=== PATIENT | male | born 1965 | race Caucasian/White ===

== ENCOUNTER → 2017-03-10 | Outpatient (CLI) | payer BC ==
[~2017-03-10] VITALS: Ht 190.5 cm; Wt 109.8 kg
[~2017-03-10] MED LIST: CATHETER FLUSH 10 ML SYR IVP PRN; GADOBUTROL 7.5 MMOL/7.5 ML (GADAVIST) VIAL IV ONE; HYDR-3583 PO; IOHEXOL 300 MG/ML 30 ML (OMNIPAQUE 300) VIAL IV ONE
[2017-03-10 12:06] VITALS: BP 128/74
[2017-03-10 12:41] VITALS: BP 124/68
--- NOTE | 2017-03-10 13:40 | Diagnostic Imaging Report ---
EXAMINATION: Fluoroscopic guided joint injection/arthrogram- left. INDICATION: Left shoulder pain, request for MR arthrogram of the shoulder is submitted. Fluoroscopy time: 25 seconds CONSENT: Informed consent was obtained from the patient. The risks, benefits, potential complications and alternatives were reviewed and all questions answered to the patient's satisfaction. PROCEDURE: After sterile preparation and draping, 1% lidocaine was utilized for local anesthesia. A 22 spinal needle is introduced into the glenohumeral joint under fluoroscopic guidance. After confirmation of proper positioning with intra-articular injection of, 12 ml of 1:150 concentration of Gadavist in normal saline is injected the into the joint. The patient tolerated the procedure well with no immediate complications. FINDINGS: Arthrogram demonstrates Normal distribution of contrast in the joint with no filling of the subacromial subdeltoid bursa seen. IMPRESSION: Successful fluoroscopic guided injection of diluted gadolinium into the left shoulder. MR arthrogram to follow. Dictated by: Dictated on workstation # [id number]
--- NOTE | 2017-03-10 14:22 | Diagnostic Imaging Report ---
PROCEDURE: MRI left joint upper extremity with contrast. TECHNIQUE: Multiplanar, multisequence contrast-enhanced MRI of the left upper extremity was accomplished. INDICATION: Left shoulder pain. Labral tear is suspected. FINDINGS: There is no os acromiale or Hill-Sachs deformity. The long head of biceps tendon is within its groove. There is good contrast distention of the glenohumeral joint with contrast extending deep to the superior labrum segment in a vertical fashion compatible with a SLAP tear. The tear does not appear to extend to the long head biceps tendon. There is also suspected focal tear involving the posterior segment of the labrum best seen around axial image #15. The acromioclavicular joint demonstrates mild osteoarthritis changes with inferior osteophytes that have an impression upon the myotendinous junction of the supraspinatus and tendinosis in the distal supraspinatus tendon with no significant rotator cuff tear seen, however. There is mild marrow edema around the acromioclavicular joint. IMPRESSION: 1. Findings suggestive of a SLAP tear and question of a focal tear along the posterior segment of the labrum. 2. Acromioclavicular osteoarthritis with inferior osteophytes and tendinosis of the distal supraspinatus tendon. No significant rotator cuff tear. Dictated by: Dictated on workstation # [id number]
== END ==
LOC: RAD 11:37
PROVIDERS: ATTEND Orthopaedic Surgery
DX: M19.012 Primary osteoarthritis, left shoulder (principal); M25.712 Osteophyte, left shoulder
CPT/HCPCS: 23350; 73040; 73222

== ENCOUNTER 2018-12-15 05:35 | Outpatient (CLI) | payer BC ==
[~2018-12-15] VITALS: Ht 190.5 cm; Wt 106.0 kg
[~2018-12-15 05:35] MED LIST changes: -CATHETER FLUSH 10 ML SYR IVP PRN; -GADOBUTROL 7.5 MMOL/7.5 ML (GADAVIST) VIAL IV ONE; -IOHEXOL 300 MG/ML 30 ML (OMNIPAQUE 300) VIAL IV ONE
[2018-12-15] MEDS ORDERED: AMPH20TA2 PO (10:25)
== END 2018-12-15 11:52 | disposition home or self-care (01) ==
LOC: PREOP 05:35
PROVIDERS: ATTEND Surgery
DX: Z01.818 Encounter for other preprocedural examination (principal)

== ENCOUNTER 2018-12-22 08:20 | Day surgery (SDC) | payer BC ==
[2018-12-22] VITALS (14 sets, daily range): BP systolic 113–129; BP diastolic 55–84
[~2018-12-22] VITALS: Ht 190.5 cm; Wt 106.0 kg
[~2018-12-22 08:20] MED LIST changes: +AMPH20TA2 PO
[2018-12-22] MEDS ORDERED: NS IV 500 ML 500 ML ONE (08:32)
[2018-12-22] MEDS ORDERED: NS IV 500 ML 500 ML IV PRN (08:38)
[2018-12-22] MEDS ORDERED: HURRICAINE EXT TUBE (BENZOCAINE) XX PRN (08:45)
[2018-12-22] MEDS ORDERED: fentaNYL INJECTION 100 MCG/2 ML AMP IVP ONE (08:45)
[2018-12-22] MEDS ORDERED: LIDOCAINE JELLY 2% 6 ML SYRINGE MM PRN (08:45)
[2018-12-22] MEDS ORDERED: MIDAZOLAM 2 MG/2 ML (VERSED) VIAL IVP ONE (08:45)
[2018-12-22] MEDS ORDERED: fentaNYL INJECTION 100 MCG/2 ML AMP ONE ×2 (10:22→10:23)
[2018-12-22] MEDS ORDERED: MIDAZOLAM 2 MG/2 ML (VERSED) VIAL ONE ×4 (10:23)
[2018-12-22] MEDS ORDERED: LIDOCAINE JELLY 2% 6 ML SYRINGE ONE (10:23)
--- NOTE | 2018-12-22 11:17 | Conscious Sedation/ASA ---
Conscious Sedation Pre-Proced Time 09:30 ASA Score 2 For ASA 3 and 4: Consider anesthesia and medical clearance. Also, for patients with a history of failed moderate sedation consider anesthesia. Airway Lungs Heart ASA score ASA 1: a normal healthy patient ASA 2: a patient with a mild systemic disease (mid diabetes, controlled hypertension, obesity ASA 3: a patient with a severe systemic disease that limits activity (angina, COPD, prior Myocardial infarction) ASA 4: a patient with an incapacitating disease that is a constant threat to life (CHF, renal failure) ASA 5: a moribund patient not expected to survive 24 hrs. (ruptured aneurysm) ASA 6: a declared brain- patient whose organs are being harvested. For emergent operations, add the letter E after the classification Mallampati Classification Grade 2 Sedation Plan Analgesia, Amnesia, Plan communicated to team members, Discussed options with patient/fam, Discussed risks with patient/fam The patient is an appropriate candidate to undergo the planned procedure, sedation, and anesthesia. The patient immediately re-assessed prior to indication. DESMOND FERREIRA MD Dec 22, 2018 11:17
--- NOTE | 2018-12-22 11:18 | Progress Note-Pre Operative ---
Pre-Operative Progress Note H&P Reviewed The H&P was reviewed, patient examined and no changes noted. Date Seen by Provider: Dec 22, 2018 Time Seen by Provider: : Date H&P Reviewed: Dec 22, 2018 Time H&P Reviewed: :30 Pre-Operative Diagnosis: GERD, dysphagia, screening, family hx colon ca DESMOND FERREIRA MD Dec 22, 2018 11:18
--- NOTE | 2018-12-22 11:20 | Progress Note-Post Operative ---
Post-Operative Progess Note Surgeon (s)/Manager Php (s) Surgeon DESMOND FERREIRA MD Manager Php: none Pre-Operative Diagnosis GERD, dysphagia, screening, family hx colon ca Post-Operative Diagnosis reflux esophagitis(stage 2), mild dist esoph stricture, small type 1 HH(2cm), moderate gastriris. Procedure & Operative Findings Date of Procedure 12/22/18 Procedure Performed/Findings EGD with bx and balloon dilatation. Colonoscopy. Anesthesia Type cs Estimated Blood Loss Estimated blood loss (mL): minimal Specimens/Packing Specimens Removed ge jxn, antrum DESMOND FERREIRA MD Dec 22, 2018 11:20
[2018-12-22] MEDS ORDERED: morphine INJ 10 MG/ML 1ML (SYR OR VIAL) IVP PRN ×2 (11:30)
[2018-12-22] MEDS ORDERED: ONDANSETRON 4 MG/2 ML (SDV) Z0FRAN IVP PRN (11:30)
[2018-12-22] MEDS ORDERED: ACETAMINOPHEN 325 MG TABLET PO PRN (11:30)
[2018-12-22] MEDS ORDERED: HYDROcodone/APAP 5 MG/325 MG (LORTAB) TAB PO PRN (11:30)
--- NOTE | 2018-12-22 15:27 | OPERATIVE REPORT ---
DATE OF SERVICE: 12/22/2018 ATTENDING PRIMARY CARE PHYSICIAN: John Wan DO PREOPERATIVE DIAGNOSIS: Screening colonoscopy with family history of colon cancer. Gastroesophageal reflux disease, dysphagia. POSTOPERATIVE DIAGNOSES: Reflux esophagitis stage II, mild distal esophageal stricture and Schatzki's ring, small hiatal hernia approximately 2 cm in size. Moderate gastritis. No distal obstructions. Mild chronic stage II external and internal hemorrhoids, mild sigmoid diverticulosis. PROCEDURE: EGD with biopsy and balloon dilatation, colonoscopy. SURGEON: Desmond Bauman MD ANESTHESIA: Conscious sedation. ESTIMATED BLOOD LOSS: Minimal. FINDINGS: Reflux esophagitis stage II, mild distal esophageal stricture and Schatzki's ring, small hiatal hernia approximately 2 cm in size. Moderate gastritis. No distal obstructions. Mild chronic stage II external and internal hemorrhoids, mild sigmoid diverticulosis. DISPOSITION: The patient tolerated the procedure well. INDICATIONS: The patient is a 53-year-old male in need of a screening colonoscopy. His last colonoscopy was approximately 6 years ago. He reports for the most part his colonoscopies have been normal. He does have a family history of colon cancer with his mother being diagnosed with the disease at age 69. He also does have a history of gastroesophageal reflux disease, which is worsening for the past two years and does have dysphagia, especially for lean meats. He also does have some episodes of regurgitation. DESCRIPTION OF PROCEDURE: The patient was brought to the endoscopy suite, laid in left lateral decubitus position. After adequate IV pain and sedative medications and conscious sedation anesthesia, the mouthpiece was applied. The endoscope was placed in the mouth, visualizing the pharynx and hypopharyngeal region. Vocal cords, epiglottis and vallecula identified and appeared to be normal. The endoscope was gently abated, the esophageal opening and esophagus insufflated. The endoscope was then advanced to the first, second and third portion of the esophagus at the level of the GE junction, reflux esophagitis stage II identified as well as a mild distal esophageal stricture and Schatzki's ring. The GE junction was also intrathoracic consistent with a hiatal hernia. A biopsy was taken of the GE junction with forceps with visualization of good hemostasis. The endoscope was then advanced into the stomach and endoscope retroflexed, visualizing a small hiatal hernia approximately 2 cm in size. The Schatzki's ring was also identified. There was a moderate severity gastritis noted towards the stomach antrum. No formal ulcerations, polyps, or any neoplasms. A biopsy was taken of the antrum to rule out H. pylori with visualization of good hemostasis. The endoscope was then advanced to the pylorus and the first and second portions of the duodenum, which appeared normal and no distal obstructions. We then proceeded with dilatation of the distal esophageal stricture. The balloon was placed in the stomach and pulled back to the area of the stricture. We first proceeded to 2 atmospheres of pressure 18 mm in luminal diameter with mild to moderate resistance and left this in place for approximately 60 seconds. The balloon was desufflated and removed with visualization of good hemostasis as well as no mucosal tears. The endoscope was then slowly withdrawn while taking a second look and suctioning of residual air with no additional findings. Under the same anesthesia, we then proceeded with colonoscopy portion of the procedure. A digital rectal examination was performed, which revealed mild chronic stage II external and internal hemorrhoids, not actively edematous nor inflamed as well as no bleeding. Normal sphincter tone was felt and there were no palpable masses. Prostate gland was palpable and appeared normal. The endoscope was then intubated into the anus and the rectum gently insufflated. The endoscope was then advanced to the valves of Dasilva of the rectum with no polyps or any neoplasms identified. We then proceeded to the sigmoid colon where mild sigmoid diverticulosis identified. The endoscope was then advanced to the remainder of the descending, transverse and ascending colon to the cecum, which were normal. There were no polyps or any neoplasms identified. The endoscope was then slowly withdrawn while taking a second look and suctioning of residual air with no additional findings. The patient tolerated the procedure well. We will recommend continued medical management with the necessary lifestyle and diet accommodation including small and more frequent meals, avoidance of eating at night as well as head elevation while lying supine. He also needs to avoid nicotine products as well as caffeinated beverages, spicy, greasy and acidic foods. We will also start him on Protonix 40 mg daily. If he does become symptomatic with dysphagia, we will recommend a repeat dilatation. We will also recommend a high fiber diet with at least 30 grams of fiber daily as well as significant amounts of water to promote soft stools on a daily basis. Due to his first degree family history of colon cancer, we will recommend a followup colonoscopy in 5 years. Job ID: [id number] DocumentID: [id number] Dictated Date: 12/22/2018 11:08:25 Crossing Guard Date: 12/22/2018 15:27:14 Dictated By: DESMOND BAUMAN MD
== END 2018-12-22 11:53 | disposition home or self-care (01) ==
LOC: ENDO 08:20
PROVIDERS: ATTEND Surgery
DX: Z12.11 Encounter for screening for malignant neoplasm of colon (principal); K21.0 Gastro-esophageal reflux disease with esophagitis; K29.70 Gastritis, unspecified, without bleeding; K22.2 Esophageal obstruction; K44.9 Diaphragmatic hernia without obstruction or gangrene; K64.8 Other hemorrhoids; K64.1 Second degree hemorrhoids; K57.30 Diverticulosis of large intestine without perforation or abscess without bleeding; R13.10 Dysphagia, unspecified; F17.290 Nicotine dependence, other tobacco product, uncomplicated; Z79.899 Other long term (current) drug therapy; Z80.0 Family history of malignant neoplasm of digestive organs

== ENCOUNTER 2019-08-23 12:58 | Inpatient (IN) | payer BC ==
[~2019-08-23] VITALS: Ht 190.5 cm; Wt 106.8 kg
[2019-08-23] MEDS ORDERED: MELATONIN 3 MG TABLET PO PRN (13:15)
[2019-08-23] MEDS ORDERED: HYDROmorphone 2 MG/ML VIAL (DILAUDID) IVP PRN (13:15)
[2019-08-23] MEDS ORDERED: BISACODYL 10 MG SUPP (DULCOLAX) PR PRN (13:15)
[2019-08-23] MEDS ORDERED: diphenhydrAMINE 25 MG TAB (BENADRYL) PO PRN (13:15)
[2019-08-23] MEDS ORDERED: ONDANSETRON 4 MG/2 ML (SDV) Z0FRAN IVP PRN (13:15)
[2019-08-23] MEDS ORDERED: DOCUSATE SODIUM 100 MG (COLACE) CAP PO PRN (13:15)
[2019-08-23] MEDS ORDERED: polyethylene glycoL POWDER 17 GM (MIRALAX) PACK PO NR (13:15)
[2019-08-23] MEDS ORDERED: LOPERAMIDE 2 MG (IMODIUM) TABLET PO PRN (13:15)
[2019-08-23] MEDS ORDERED: methylPREDNISolone 125 MG (Solu-MEDROL) VIAL IVP NR (13:15)
[2019-08-23] MEDS ORDERED: DIAZEPAM 2 MG (VALIUM) TAB PO PRN (13:15)
[2019-08-23] MEDS ORDERED: ONDANSETRON 4 MG (ZOFRAN) ORAL DISSOLVE TAB PO PRN (13:15)
[2019-08-23] MEDS ORDERED: ACETAMINOPHEN 500 MG TAB (TYLENOL) PO PRN (13:15)
[2019-08-23] MEDS ORDERED: CALCIUM CARBONATE 500 MG (TUMS) TAB.CHEW PO PRN (13:15)
[2019-08-23 13:56] VITALS: BP 144/92
--- OUTSIDE RECORDS SUMMARY | 2019-08-23 14:36 | XMS REPORT | Continuity of Care Document ---
Author Organization Unknown Address Unknown Phone Unavailable Allergies Active Description Code Type Severity Reaction Onset Reported/Identified Relationship to Patient Clinical Status Yes No Known Drug Allergies [id number] Drug Allergy Unknown N/A 12/15/2018 Medications There is no data. Problems Date Dx Coded Attending Type Code Diagnosis Diagnosed By 06/30/2012 Ot 717.3 DERA NG MED MENISCUS NEC 11/06/2015 Ot 780.79 OTH MALAISE FATIGUE 11/06/2015 Ot 786.05 LUCY RTNESS OF BREATH 11/06/2015 Ot 789.01 ABD OMINAL PAIN, RIGHT UPPER QUADRANT 11/06/2015 Ot 717.3 DERA NG MED MENISCUS NEC 11/06/2015 Ot V72.83 EXA M PRE- OPERATIVE NEC 11/06/2015 Ot V74.8 SCRE EN-BACTERIAL DIS NEC 2017 Ot 789.01 ABD OMINAL PAIN, RIGHT UPPER QUADRANT 2017 Ot 717.3 DERA NG MED MENISCUS NEC 2017 Ot V72.83 EXA M PRE- OPERATIVE NEC 2017 Ot V74.8 SCRE EN-BACTERIAL DIS NEC 03/12/2017 ZAINAB DELACRUZ MD Ot M19.012 PRIMARY OSTEOARTHRITIS, LEFT SHOULDER 03/12/2017 ZAINAB DELACRUZ MD Ot M25.712 OSTEOPHYTE, LEFT SHOULDER 04/02/2017 ZAINAB DELACRUZ MD Ot M19.012 PRIMARY OSTEOARTHRITIS, LEFT SHOULDER 04/02/2017 ZAINAB DELACRUZ MD, Ot M25.712 OSTEOPHYTE, LEFT SHOULDER 05/26/2017 ZAINAB DELACRUZ 840.7 SUPERIOR GLENOID LABRUM LESION 05/26/2017 ZAINAB DELACRUZ S43.432 A SUPERIOR GLENOID LABRUM LESION OF LEFT SHOULDER, INIT ENCNTR 11/26/2017 ZAINAB DELACRUZ 726.13 PARTIAL TEAR OF ROTATOR CUFF 11/26/2017 ZAINAB DELACRUZ M75.111 INCOMPLETE ROTATR-CUFF TEAR/RUPTR OF R SHOULDER, NOT TRAUMA 01/15/2018 W 726.13 PAR TIAL TEAR OF ROTATOR CUFF 01/15/2018 W M75.111 IN COMPLETE ROTATR-CUFF TEAR/RUPTR OF R SHOULDER, NOT TRAUMA 12/15/2018 DESMOND FERREIRA MD, Ot Z01.81 8 ENCOUNTER FOR OTHER PREPROCEDURAL EXAMIN 12/22/2018 ZAINAB DELACRUZ MD Ot M19.012 PRIMARY OSTEOARTHRITIS, LEFT SHOULDER 12/22/2018 ZAINAB DELACRUZ MD Ot M25.712 OSTEOPHYTE, LEFT SHOULDER 12/22/2018 DESMOND FERREIRA MD, Ot F17.29 0 NICOTINE DEPENDENCE, OTHER TOBACCO PRODU 12/22/2018 DESMOND FERREIRA MD, Ot K21.0 GASTRO-ESOPHAGEAL REFLUX DISEASE WITH ES 12/22/2018 DESMOND FERREIRA MD, Ot K22.2 ESOPHAGEAL OBSTRUCTION 12/22/2018 DESMOND FERREIRA MD, Ot K29.70 GASTRITIS, UNSPECIFIED, WITHOUT BLEEDING 12/22/2018 DESMOND FERREIRA MD, Ot K44.9 DIAPHRAGMATIC HERNIA WITHOUT OBSTRUCTION 12/22/2018 DESMOND FERREIRA MD, Ot K57.30 DVRTCLOS OF LG INT W/O PERFORATION OR AB 12/22/2018 DESMOND FERREIRA MD, Ot K64.1 SECOND DEGREE HEMORRHOIDS 12/22/2018 DESMOND FERREIRA MD, Ot K64.8 OTHER HEMORRHOIDS 12/22/2018 DESMOND FERREIRA MD, Ot R13.10 DYSPHAGIA, UNSPECIFIED 12/22/2018 DESMOND FERREIRA MD, Ot Z12.11 ENCOUNTER FOR SCREENING FOR MALIGNANT NE 12/22/2018 DESMOND FERREIRA MD, Ot Z79.89 9 OTHER [facility] (CURRENT) DRUG THERAPY 12/22/2018 DESMOND FERREIRA MD, Ot Z80.0 FAMILY HISTORY OF MALIGNANT NEOPLASM OF 12/29/2018 DESMOND FERREIRA MD, Ot F17.29 0 NICOTINE DEPENDENCE, OTHER TOBACCO PRODU 12/29/2018 DESMOND FERREIRA MD, Ot K21.0 GASTRO-ESOPHAGEAL REFLUX DISEASE WITH ES 12/29/2018 DESMOND FERREIRA MD, Ot K22.2 ESOPHAGEAL OBSTRUCTION 12/29/2018 DESMOND FERREIRA MD Ot K29.70 GASTRITIS, UNSPECIFIED, WITHOUT BLEEDING 12/29/2018 DESMOND FERREIRA MD Ot K44.9 DIAPHRAGMATIC HERNIA WITHOUT OBSTRUCTION 12/29/2018 DESMOND FERREIRA MD, Ot K57.30 DVRTCLOS OF LG INT W/O PERFORATION OR AB 12/29/2018 DESMOND FERREIRA MD, Ot K64.1 SECOND DEGREE HEMORRHOIDS 12/29/2018 DESMOND FERREIRA MD, Ot K64.8 OTHER HEMORRHOIDS 12/29/2018 DESMOND FERREIRA MD, Ot R13.10 DYSPHAGIA, UNSPECIFIED 12/29/2018 DESMOND FERREIRA MD, Ot Z12.11 ENCOUNTER FOR SCREENING FOR MALIGNANT NE 12/29/2018 DESMOND FERREIRA MD, Ot 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 Results Test Result Range PSA Yearly Screen - 11/11/17 08:13 PSA TOTAL 1.9 ng/mL 0.0-4.0 BMP - 10/30/18 12:11 Anion Gap 13 6-14 BUN 11 mg/dL 5-25 Calcium 9.9 mg/dL 8.3-10.4 Chloride 105 mmol/L 95-114 CO2 28 mEq/L 22-33 Creat 0.99 mg/dL 0.50-1.50 eGFR 79 mL/min/1.73m2 >59 Glucose 97 mg/dL 70-110 Osmo 293 280-295 Potassium 4.2 mmol/L 3.5-5.3 Sodium 142 mmol/L 134-148 Lipid Panel - 10/30/18 12:11 C/HDL 4.1 3.7-6.7 Cholesterol 168 mg/dL 100-240 HDL 41 mg/dL 30-85 LDL-Calculated 101 mg/dL 0-100 Trig 129 mg/dL 35-160 VLDL 26 mg/dL 0-42 PSA Yearly Screen - 10/30/18 12:11 PSA TOTAL 3.6 ng/mL 0.0-4.0 Encounters ACCT No. Visit Date/Time Discharge Status Pt. Type Provider Facility Loc./Unit Complaint [id number] 12/29/2018 12:25:00 12/29/2018 23:59: 00 DIS Outpatient ADOLPH CEDENO [id number] 10/30/2018 11:52:00 10/30/2018 23:59: 00 DIS Outpatient John Wan [id number] 10/29/2018 10:48:00 10/29/2018 10:48: 00 CAN Outpatient John Wan [id number] 11/20/2017 09:18:00 01/15/2018 10:10: 00 DIS Outpatient MARILUZFREDALANCE ZAINAB [id number] 12/30/2017 14:15:00 12/30/2017 23:59: 00 DIS Outpatient SELF, [facility] [id number] 11/19/2017 15:03:00 11/19/2017 23:59: 00 DIS Outpatient ZAINAB DELACRUZ [id number] 11/11/2017 07:20:00 11/11/2017 23:59: 00 DIS Outpatient John Wan [id number] 11/04/2017 00:00:00 11/04/2017 23:59: 00 DIS Outpatient ZAINAB DELACRUZ [id number] 04/07/2017 12:24:00 05/26/2017 13:35: 00 DIS Outpatient ZAINAB DELACRUZ [id number] 12/10/2016 10:51:00 12/10/2016 23:59: 00 DIS Outpatient SELF, [facility] [id number] 11/19/2017 14:55:00 Document Registration [id number] 12/22/2018 08:20:00 019 11:53:00 DIS Outpatient DESMOND FERREIRA MD Via [facility] ENDO SCREENING/DYSPHAGIA/EPI GASTRIC PRESSURE [id number] 12/15/2018 05:35:00 019 11:52:00 DIS Outpatient DESMOND FERREIRA MD [facility] PREOP COLONOSCOPY/EGD [id number] 2017 11:37:00 017 23:59:59 CLS Outpatient ZAINAB DELACRUZ MD [facility] RAD SUPERIOR GLENOID LABRUM LESION OF LT SHOULDER [id number] 11/06/2015 09:46:00 Document Registration [id number] 06/30/2012 13:17:00 Document Registration [id number] 06/29/2012 15:11:00 Document Registration [id number] 05/31/2012 06:34:00 Document Registration [id number] 05/27/2011 09:13:00 Document Registration
--- NOTE | 2019-08-23 14:41 | Diagnostic Imaging Report ---
PROCEDURE: MRI lumbar spine. TECHNIQUE: Multiplanar, multisequence MRI of the lumbar spine was performed without contrast. INDICATION: Back pain. COMPARISON: There are no prior studies available for comparison. FINDINGS: The reconstructed T2 parasagittal images show the vertebral body heights and alignment to be generally within normal limits. The intervertebral spaces are fairly well maintained, although there is desiccation of the discs at every level, particularly at L4-L5. At the L4-L5 level, there is a slight disc bulge centrally. The disc effaces the ventral aspect of the thecal sac but does not produce spinal stenosis. There does appear to be moderate narrowing of the neuroforamen bilaterally at this level, however. There is no evidence for spinal stenosis at L5-S1 either but there is also moderate narrowing of the neuroforamen bilaterally at this level. The remainder of the lumbar spine is unremarkable for spinal stenosis or any significant nerve root encroachment. There is no abnormal signal arising from the cord or other vertebral bodies to indicate an acute abnormality. There is no sign of a paraspinal mass. IMPRESSION: 1. There is no evidence for a high-grade central stenosis at any level of the lumbar spine. However, there is moderate narrowing of the neuroforamen bilaterally at L4-L5 and L5-S1. 2. There is no sign of an acute bony abnormality or of a cord lesion. 3. These results were discussed with Dr. Edwards. Dictated by: Dictated on workstation # [id number]
[2019-08-23 14:48] LABS: BASOPHILS % (AUTO) 0 % (0-10); EOSINOPHILS # (AUTO) 0.1 10^3/uL (0.0-0.3); EOSINOPHILS % (AUTO) 1 % (0-10); HEMATOCRIT 46 % (40-54); HEMOGLOBIN 16.3 G/DL (13.3-17.7); LYMPHOCYTES # (AUTO) 0.8 X 10^3 (1.0-4.0); LYMPHOCYTES % (AUTO) 7 % (12-44); MEAN CORPUSCULAR HEMOGLOBIN 31 PG (25-34); MEAN CORPUSCULAR HGB CONC 35 G/DL (32-36); MEAN CORPUSCULAR VOLUME 87 FL (80-99); MEAN PLATELET VOLUME 9.9 FL (7.4-10.4); MONOCYTES # (AUTO) 0.6 X 10^3 (0.0-1.0); MONOCYTES % (AUTO) 5 % (0-12); NEUTROPHILS # (AUTO) 10.3 X 10^3 (1.8-7.8); NEUTROPHILS % (AUTO) 88 % (42-75); PLATELET COUNT 248 10^3/uL (130-400); RED CELL DISTRIBUTION WIDTH 13.2 % (10.0-14.5); WHITE BLOOD COUNT 11.8 10^3/uL (4.3-11.0)
[2019-08-23] MEDS: NS IV 1000 ML 1,000 ML IV SCH ×2 (14:50→23:30)
[2019-08-23] MEDS ORDERED: ENOXAPARIN 40 MG/0.4 ML (LOVENOX) SYR SC SCH (15:00)
[2019-08-23 15:08] LABS: ALBUMIN 4.1 GM/DL (3.2-4.5)
[2019-08-23 15:09] LABS: CHLORIDE 107 MMOL/L (98-107); SODIUM 139 MMOL/L (135-145)
[2019-08-23 15:10] LABS: CALCIUM 9.1 MG/DL (8.5-10.1)
[2019-08-23 15:11] LABS: GLUCOSE 154 MG/DL (70-105); TOTAL PROTEIN 6.6 GM/DL (6.4-8.2)
[2019-08-23 15:12] LABS: CARBON DIOXIDE 23 MMOL/L (21-32)
[2019-08-23 15:13] LABS: BILIRUBIN,TOTAL 0.5 MG/DL (0.1-1.0)
[2019-08-23 15:14] LABS: ALKALINE PHOSPHATASE 73 U/L (40-136)
[2019-08-23 15:15] LABS: CREATININE SERUM 0.93 MG/DL (0.60-1.30); GFR ESTIMATED > 60
[2019-08-23 15:16] LABS: BUN/CREATININE RATIO 12
[2019-08-23 15:17] LABS: ALANINE AMINOTRANSFERASE 27 U/L (0-55)
[2019-08-23] MEDS ORDERED: HYDROmorphone 2 MG/ML VIAL (DILAUDID) IV PRN (15:30)
[2019-08-23] MEDS ORDERED: PRD10T PO (15:32)
[2019-08-23] MEDS ORDERED: DEXT20CA4 PO (15:32)
[2019-08-23] MEDS ORDERED: IBUP-2473 PO (15:32)
[2019-08-23] MEDS ORDERED: BISA5TAB49 PO (15:32)
[2019-08-23] MEDS ORDERED: BACL10TA PO (15:32)
[2019-08-23] MEDS ORDERED: OXYC1TAB12 PO (15:32)
[2019-08-23 15:58] LABS: NEUTROPHILS % (MANUAL) 89 %
[2019-08-23 15:59] LABS: EOSINOPHILS % (MANUAL) 1 %; LYMPHOCYTES % (MANUAL) 7 %; MONOCYTES % (MANUAL) 3 %; RBC MORPH NORMAL
[2019-08-23 16:00] LABS: BILIRUBIN,URINE NEGATIVE (NEGATIVE); CLARITY,URINE CLEAR; COLOR,URINE YELLOW; GLUCOSE, URINE (UA) NEGATIVE (NEGATIVE); KETONES,URINE NEGATIVE (NEGATIVE); LEUKOCYTE ESTERASE ,URINE NEGATIVE (NEGATIVE); NITRITE,URINE NEGATIVE (NEGATIVE); PROTEIN,URINE NEGATIVE (NEGATIVE)
[2019-08-23 16:05] LABS: ERYTHROCYTE SEDIMENTATION RATE 1 MM/HR (0-30)
[2019-08-23 16:26] VITALS: BP 149/87
[2019-08-23 16:37] LABS: BACTERIA,URINE NEGATIVE /HPF; WBC,URINE 0-2 /HPF
[2019-08-23] MEDS: ALPRAZolam 0.25 MG (XANAX) TAB PO PRN (16:57)
[2019-08-23] MEDS: DICLOFENAC 1% GEL 100 GM (VOLTAREN) TUBE TOP SCH ×2 (17:21→21:31)
[2019-08-23] MEDS: methylPREDNISolone 40 MG/ML (Solu-MEDROL) VIAL IV SCH ×2 (17:46→23:30)
--- NOTE | 2019-08-23 17:52 | History & Physical-Hospitalist ---
History of Present Illness HPI/Chief Complaint CC: Incapacitating back pain failed PO antiinflammatory and narcs HPI: This is a 54yoWM clinic patient of Dr Wan who has no PMH who presents to the [facility] room 413 as a direct admit from Dr Wan's office with severe and unrelenting and incapacitating back pain since Thursday. He reports he has had back pain for a long time but was lifting at home and sustained severe pain and has been unrelenting since. Patient was given multiple meds per Dr Wan without relief. He was admitted for pain control and MRI obtained revealing pathology prompting consultation with Dr Garcia who graciously provided his expert consultation and will plan for surgical resolution tomorrow since Lovenox had been given tonight. Labs reviewed and all normal. Currently Dilaudid has been helpful for the pain and the steroids. Source: patient, RN/MD Exam Limitations: no limitations Date Seen 08/23/19 Time Seen by a Provider: 17:30 Attending Physician Maryjo Nguyen DO PCP John Wan DO Referring Physician Date of Admission Aug 23, 2019 at 13:33 Home Medications & Allergies Home Medications Reviewed patient Home Medication Reconciliation performed by pharmacy medication reconciliations laser/electro optics technician and/or nursing. Patients Allergies have been reviewed. Allergies Allergies Coded Allergies No Known Drug Allergies (Unverified12/15/18) Past Dmiiwcu-Ckeaaw-Ttotsy Hx Past Med/Social Hx: Reviewed Nursing Past Med/Soc Hx, Reviewed and Corrections made Patient Social History Marrital Status: Employed/Student: employed ([employer]) Alcohol Use: Rarely Uses Number of Drinks Today: 0 Alcohol Beverage of Choice: Beer Recreational Drug Use: No Smoking Status: Never a Smoker 2nd Hand Smoke Exposure: No Physical Abuse Screen: No Sexual Abuse: No Recent Foreign Travel: No Contact w/other who traveled: No Recent Hopitalizations: No Recent Infectious Disease Expo: No Immunizations Up To Date Pediatric: No Date of Influenza Vaccine: Dec 28, 2017 Seasonal Allergies Seasonal Allergies: No Past Medical History Surgeries: Orthopedic Currently Using CPAP: No Currently Using BIPAP: No Sexually Transmitted Disease: No HIV/AIDS: No Gastrointestinal: Gastroesophageal Reflux, Chronic Constipation, Chronic Diarrhea Are Your Blood Sugars Over 250: No Loss of Vision: Denies Hearing Impairment: Denies Psychosocial: ADD/ADHD History of Blood Disorders: No Adverse Reaction to Blood Doss: No (N/A) Review of Systems Constitutional: see HPI Musculoskeletal: back pain, joint pain, muscle pain, muscle stiffness, muscle cramps Physical Exam Physical Exam Vital Signs Vital Signs - First Documented 08/23/19 08/23/19 13:56 16:26 Temp 36.0 Pulse 60 Resp 18 B/P (MAP) 144/92 Pulse Ox 96 O2 Delivery Room Air Capillary Refill : Height, Weight, BMI Height: 6'3.00" Weight: 242lbs. 0.0oz. 109.336972dr; 29.42 BMI Method: General Appearance: WD/WN, Anxious, Moderate Distress Eyes: Right Eye Normal Inspection, Right Eye PERRL HEENT: PERRL/EOMI, Normal ENT Inspection, Pharynx Normal, Moist Mucous Membranes Neck: Full Range of Motion, Normal Inspection, Non Tender Respiratory: Chest Non Tender, Lungs Clear, Normal Breath Sounds, No Accessory Muscle Use, No Respiratory Distress Cardiovascular: Regular Rate, Rhythm, No Edema, No Gallop, No JVD, No Murmur, Normal Peripheral Pulses Gastrointestinal: Normal Bowel Sounds, No Organomegaly, No Pulsatile Mass, Non Tender, Soft Back: Normal Inspection, Decreased Range of Motion, Muscle Spasm, Vertebral Tenderness Extremity: Normal Capillary Refill, Normal Inspection, Normal Range of Motion, Non Tender, No Calf Tenderness, No Pedal Edema Neurologic/Psychiatric: Alert, Oriented x3, No Motor/Sensory Deficits, Normal Mood/Affect, Motor Weakness (left leg 4/5 strength) Skin: Normal Color, Warm/Dry Lymphatic: No Adenopathy Results Results/Procedures Labs Laboratory Tests 08/23/19 14:42 Patient resulted labs reviewed. Assessment/Plan Admission Diagnosis Assessment: Severe and incapacitating back pain failed PO meds requiring surgical resolution per Dr Garcia Chronic constipation Plan: Pain meds IV Valium IV steroids Surgery tomorrow Hold Lovenox Appreciate Dr Garcia Admission Status: Inpatient Order (span 2 midnights) Reason for Inpatient Admission: failed po pain meds and steroids in need of surgical resolution Diagnosis/Problems Diagnosis/Problems (1) Severe low back pain Clinical Quality Measures DVT/VTE Risk/Contraindication: Risk Factor Score Per Nursin RFS Level Per Nursing on Admit: 1=Low/No VTE PPX MARYJO NGUYEN DO Aug 23, 2019 17:52
--- NOTE | 2019-08-23 19:17 | Consultation ---
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 Had to be admitted for the pain and still isn't comfortable. Has progressvely worsening numbness in his left leg into his hodgson/foot. Was lifting at home this weekend when it started. Denies any bowel and bladder problems. No prior history of similar pain. Allergies and Home Medications Allergies Coded Allergies: No Known Drug Allergies (Unverified , 12/15/18) Home Medications Baclofen 10 Mg Tablet, 5 MG PO TID, (Reported) TAKING OF A 10MG TAB Bisacodyl 5 Mg Tablet, 5 MG PO DAILY, (Reported) Dextroamphetamine/Amphetamine 20 Mg Cap.er.24h, 20 MG PO DAILY, (Reported) Ibuprofen 200 Mg Tablet, 400 MG PO Q8H PRN for PAIN-MILD (1-4), (Reported) Oxycodone HCl/Acetaminophen 1 Each Tablet, 1 TAB PO Q6H PRN for PAIN-MODERATE (5-7), (Reported) Prednisone 10 Mg Tab, MG PO UD, (Reported) THIS IS A TAPER DOSE: 3 TABS TWICE DAILY X5 DAYS-PT JUST STARTED AND WAS STILL ON THISE DOSE 2 TABS TWICE DAILY X 4 DAYS 2 TABS DAILYX 2 DAYS 1 TAB DAILY X 2 DAYS- THEN STOP Patient Home Medication List Home Medication List Reviewed: Yes Past Vmopite-Gymzkp-Gueemh Hx Patient Social History Alcohol Use: Rarely Uses Number of Drinks Today: 0 Alcohol Beverage of Choice: Beer Recreational Drug Use: No Smoking Status: Never a Smoker 2nd Hand Smoke Exposure: No Recent Foreign Travel: No Contact w/Someone Who Travel: No Recent Infectious Disease Expo: No Recent Hopitalizations: No Immunizations Up To Date PED Vaccines UTD: No Date of Influenza Vaccine: Dec 28, 2017 Seasonal Allergies Seasonal Allergies: No Past Medical History Surgeries: Yes (KNEE R, BILAT SHOULDER) Respiratory: No Currently Using CPAP: No Currently Using BIPAP: No Cardiac: No Neurological: No Sexually Transmitted Disease: No HIV/AIDS: No Genitourinary: No Gastrointestinal: Yes Gastroesophageal Reflux, Chronic Constipation, Chronic Diarrhea Musculoskeletal: No Endocrine: No Are Your Blood Sugars Over 250: No HEENT: Yes (GLASSES/CONTACTS) Loss of Vision: Denies Hearing Impairment: Denies Cancer: No Psychosocial: Yes ADD/ADHD Integumentary: No Blood Disorders: No Adverse Reaction/Blood Tranf: No (N/A) Review of Systems-General Constitutional: no symptoms reported EENTM: no symptoms reported Respiratory: no symptoms reported Cardiovascular: no symptoms reported Gastrointestinal: no symptoms reported Genitourinary: no symptoms reported Musculoskeletal: back pain, joint pain Skin: no symptoms reported Psychiatric/Neurological: Numbness, Paresthesia, Weakness Physical Exam-General Problems Physical Exam Vital Signs Vital Signs - First Documented 08/23/19 08/23/19 13:56 16:26 Temp 36.0 Pulse 60 Resp 18 B/P (MAP) 144/92 Pulse Ox 96 O2 Delivery Room Air Capillary Refill : General Appearance: WD/WN, no apparent distress, moderate distress Eyes: Bilateral Eye Normal Inspection HEENT: normal ENT inspection Neck: non-tender, full range of motion, supple Respiratory: chest non-tender, no respiratory distress, no accessory muscle use Cardiovascular: regular rate, rhythm, no JVD Gastrointestinal: non tender, soft Rectal: deferred Back: decreased range of motion, vertebral tenderness Extremities: normal range of motion, no pedal edema, no calf tenderness, normal capillary refill Neurologic/Psychiatric: motor weakness, sensory deficit, other (has L4 pattern numbness on left leg and 3/5 quad strenght on the left. + SLR) Reflexes: 2+ Knee (R); 0 Knee (L); 2+ Ankle (R), 2+ Ankle (L) Skin: normal color, warm/dry Lymphatic: no adenopathy Comments MRI shows large left L4-5 far lateral/foraminal HNP with severe stenosis. Assessment/Plan Assessment/Plan Admission Diagnosis/Plan Left L4-5 Large Far Lateral HNP with Left L4 radiculopathy, uncontrollable pain and progressive numbness/weakness Plan: Left L4-5 far lateral microdiscectomy Risk benefits/alternatives discussed with patient, elect to proceed, due to Lovenox administration will have to delay until tomorrow. Clinical Quality Measures DVT/VTE Risk/Contraindication: Risk Factor Score Per Nursin RFS Level Per Nursing on Admit: 1=Low/No VTE PPX TITO ROOT MD Aug 23, 2019 19:17
[2019-08-23 19:56] VITALS: BP 143/79
[2019-08-23] MEDS: polyethylene glycoL POWDER 17 GM (MIRALAX) PACK PO SCH (20:12)
[2019-08-23] MEDS: BACLOFEN 10 MG (LIORESAL) TAB PO SCH (21:31)
[2019-08-23] MEDS: SENNA W/DOCUSATE (SENOKOT S) TABLET PO SCH (21:31)
[2019-08-24] VITALS (18 sets, daily range): BP systolic 72–151; BP diastolic 41–88
[2019-08-24] MEDS: methylPREDNISolone 40 MG/ML (Solu-MEDROL) VIAL IV SCH ×4 (05:20→22:51)
[2019-08-24] MEDS: polyethylene glycoL POWDER 17 GM (MIRALAX) PACK PO SCH ×2 (07:53→21:53)
[2019-08-24] MEDS: DICLOFENAC 1% GEL 100 GM (VOLTAREN) TUBE TOP SCH ×4 (08:54→22:52)
[2019-08-24] MEDS: BACLOFEN 10 MG (LIORESAL) TAB PO SCH ×3 (08:54→22:51)
[2019-08-24] MEDS: SENNA W/DOCUSATE (SENOKOT S) TABLET PO SCH ×2 (08:54→22:59)
--- NOTE | 2019-08-24 11:01 | Progress Note - Hospitalist ---
Subjective HPI/CC On Admission Date Seen by Provider: Aug 24, 2019 Time Seen by Provider: 10:00 CC: Incapacitating back pain failed PO antiinflammatory and narcs HPI: This is a 54yoWM clinic patient of Dr Wan who has no PMH who presents to the [facility] room 413 as a direct admit from Dr Wan's office with severe and unrelenting and incapacitating back pain since Thursday. He reports he has had back pain for a long time but was lifting at home and sustained severe pain and has been unrelenting since. Patient was given multiple meds per Dr Wan without relief. He was admitted for pain control and MRI obtained revealing pathology prompting consultation with Dr Garcia who graciously provided his expert consultation and will plan for surgical resolution tomorrow since Lovenox had been given tonight. Labs reviewed and all normal. Currently Dilaudid has been helpful for the pain and the steroids. Subjective/Events-last exam Pt doing much better Left leg is still very numb and nonfunctional Surgery today by Dr. Garcia at 5:30 Will plan on DC tomorrow Pain medication tolerated very well Updated pt on the plan Review of Systems Musculoskeletal: back pain, leg pain Objective Exam Vital Signs Vital Signs Date Time Temp Pulse Resp B/P (MAP) Pulse Ox O2 Delivery O2 Flow Rate FiO2 08/24/19 15:34 36.8 79 18 151/72 (98) 95 Room Air Capillary Refill : Less Than 3 Seconds General Appearance: No Apparent Distress, WD/WN Respiratory: Chest Non Tender, Lungs Clear, Normal Breath Sounds, No Accessory Muscle Use, No Respiratory Distress Cardiovascular: Regular Rate, Rhythm, No Edema, No Gallop, No JVD, No Murmur, Normal Peripheral Pulses Neurologic/Psychiatric: Alert, Oriented x3, No Motor/Sensory Deficits (ecept left leg decreased strength), Normal Mood/Affect Results/Procedures Lab Patient resulted labs reviewed. Assessment/Plan Assessment and Plan Assess & Plan/Chief Complaint Assessment: Severe and incapacitating back pain failed PO meds requiring surgical resolution per Dr Garcia Chronic constipation Plan: Pain meds IV Valium IV steroids Surgery today [address] App[address] Garcia Diagnosis/Problems Diagnosis/Problems (1) Severe low back pain Clinical Quality Measures DVT/VTE Risk/Contraindication: Risk Factor Score Per Nursin RFS Level Per Nursing on Admit: 1=Low/No VTE PPX JOELLEN NGUYEN DO Aug 24, 2019 11:01
[2019-08-24] MEDS ORDERED: fentaNYL INJECTION 100 MCG/2 ML AMP ONE ×2 (13:40→18:49)
[2019-08-24] MEDS ORDERED: ROCURONIUM 10 MG/ML 5 ML SYRINGE IV ONE (13:40)
[2019-08-24] MEDS ORDERED: LIDOCAINE PF 2% 5 ML (XYLOCAINE) VIAL ONE (13:40)
[2019-08-24] MEDS ORDERED: proPOfol 200 MG/20 ML (DIPRIVAN) VIAL IV ONE (13:40)
[2019-08-24] MEDS ORDERED: ONDANSETRON 4 MG/2 ML (SDV) Z0FRAN ONE (13:40)
[2019-08-24] MEDS ORDERED: SEVOFLURANE (ULTANE) 15 ML INHAL SOLN ONE ×3 (13:40→19:40)
[2019-08-24] MEDS ORDERED: MIDAZOLAM 2 MG/2 ML (VERSED) VIAL ONE (13:41)
[2019-08-24] MEDS: NS IV 1000 ML 1,000 ML IV SCH (13:44)
[2019-08-24] MEDS ORDERED: GENTAMICIN 40 MG/ML 2 ML INJ SDV ONE (16:07)
[2019-08-24] MEDS ORDERED: BUP/EPI 0.5% 1:200,000 (SENSORCAINE) 30 ML VIAL ONE (16:07)
[2019-08-24] MEDS ORDERED: BACITRACIN OINTMENT 28 GM TUBE ONE (16:07)
[2019-08-24] MEDS: LACTATED RINGERS 1,000 ML IV PRN ×3 (17:25→20:17)
[2019-08-24] MEDS ORDERED: morphine INJ 10 MG/ML 1ML (SYR OR VIAL) IVP ONE (17:30)
[2019-08-24] MEDS ORDERED: ceFAZolin 2 GM IV Premixed 50 ML IV NR (17:30)
[2019-08-24] MEDS ORDERED: HYDROmorphone 2 MG/ML VIAL (DILAUDID) IV ONE (17:30)
[2019-08-24] MEDS ORDERED: ONDANSETRON 4 MG/2 ML (SDV) Z0FRAN IVP PRN (17:30)
[2019-08-24] MEDS ORDERED: morphine INJ 10 MG/ML 1ML (SYR OR VIAL) ONE (19:33)
--- NOTE | 2019-08-24 19:37 | Progress Note-Post Operative ---
Post-Operative Progess Note Surgeon (s)/Print Shop Chief Clerk (s) Surgeon TITO ROOT MD Print Shop Chief Clerk: Jorge Isabel, RAMA Pre-Operative Diagnosis L4-5 Far Lateral Left HNP, L4 Radiculopathy Post-Operative Diagnosis Same Procedure & Operative Findings Date of Procedure 08/24/19 Procedure Performed/Findings Left L4-5 Far Lateral/Extraforaminal Microdiscectomy (37345) Anesthesia Type GETA Estimated Blood Loss Estimated blood loss (mL): Minimal Specimens/Packing Specimens Removed Disc, but not sent to path TITO OROT MD Aug 24, 2019 19:37
[2019-08-24] MEDS ORDERED: GLYCOPYRROLATE 0.2 MG/ML (ROBINUL) 2 ML VIAL ONE (19:40)
[2019-08-24] MEDS ORDERED: NEOSTIGMINE 3 MG/3 ML VIAL ONE (19:40)
[2019-08-24] MEDS ORDERED: DEXAMETHASONE 10 MG/ML (DECADRON) 1 ML VIAL ONE (19:41)
--- NOTE | 2019-08-24 20:21 | Diagnostic Imaging Report ---
INDICATION: Back pain. IMPRESSION: 3.7 seconds fluoroscopy and 1 lateral digital image of the lumbar spine was used in surgery by Dr. Garcia for localization. Dictated by: Dictated on workstation # [id number]
[2019-08-24] MEDS: ALPRAZolam 0.25 MG (XANAX) TAB PO PRN (23:00)
[2019-08-25 00:15] VITALS: BP 126/62
[2019-08-25] MEDS: NS IV 1000 ML 1,000 ML IV SCH (02:35)
[2019-08-25 04:17] VITALS: BP 107/59
--- NOTE | 2019-08-25 05:08 | OPERATIVE REPORT ---
DATE OF SERVICE: 08/24/2019 PREOPERATIVE DIAGNOSES: L4-L5 left far lateral foraminal disc herniation with left L4 radiculopathy, weakness and intractable pain. POSTOPERATIVE DIAGNOSES: L4-L5 left far lateral foraminal disc herniation with left L4 radiculopathy, weakness and intractable pain. PROCEDURE PERFORMED: Left L4-L5 far lateral extraforaminal microdiscectomy (28147). DATE AND TIME OF SURGERY: Please see anesthesia record. SURGEON: Tito Garcia MD WORKFORCE STAFFING ADVISOR: CRYSTAL Suazo ROLE OF ROTARY MACHINE OPERATOR: Aid in retraction of the procedure, suction of neural elements, and wound closure. ANESTHESIA: General endotracheal. ESTIMATED BLOOD LOSS: Minimal. INTRAVENOUS FLUIDS: Please see anesthesia record. ANTIBIOTICS: Ancef. COMPLICATIONS: None. SPECIMENS: Disc removed, but not sent to pathology. INDICATIONS FOR PROCEDURE: The patient is a 54-year-old male with severe back and left leg pain, weakness, numbness intractable pain, had to be admitted for pain control, has a L4-L5 foraminal disc herniation, sitting on his DRG in the left L4-L5 foramen. Risks, benefits, alternatives were discussed and he elected to proceed with operative intervention. DESCRIPTION OF PROCEDURE: The patient was taken preoperative holding area and brought back to the operative suite. After adequate induction of general anesthetic, preoperative antibiotics, placed spinal monitoring. Standard neuromonitoring was carried out by means of real time continuous high quality bidirectional mode, audio and visual communication to both the metallurgical lab technician and surgeon by Dr. Rogers. After sterile prep and drape were performed and was made just off the midline at the L4-L5 level on the left. Dissection was carried down to the L4-L5 level, confirmed with fluoroscopic imaging and a Shadow-Line retractor was placed deep for remainder of the case. An extraforaminal approach lateral to the facet was carried out to the foraminal area where the nerve root was visualized and retracted and almost immediately there were multiple large fragments of disc material within the canal that were tenting the nerve root, which were removed with a micropituitary. Once sufficient disc material was removed, nerve hook was utilized as well as an angled curette to try to remove further fragments. Once all the free fragments were palpated, a Steele was passed underneath the nerve laterally, medially. No other fragments were noted. Wound was copiously irrigated. Hemostasis was achieved with bipolar electrocautery, FloSeal and bone wax. Decompression was assured. Neuromonitoring stable. Wound was copiously irrigated. Wound was closed in layers and the patient was transferred to recovery room in stable condition having tolerated the procedure well with stable spinal monitoring. Job ID: [id number] DocumentID: [id number] Dictated Date: 08/24/2019 19:32:26 Alarm Mechanism Adjuster Date: 08/25/2019 05:08:13 Dictated By: TITO GARCIA MD
[2019-08-25] MEDS: methylPREDNISolone 40 MG/ML (Solu-MEDROL) VIAL IV SCH (06:08)
[2019-08-25 07:19] LABS: BASOPHILS % (AUTO) 0 % (0-10); EOSINOPHILS % (AUTO) 0 % (0-10); HEMATOCRIT 43 % (40-54); HEMOGLOBIN 14.8 G/DL (13.3-17.7); LYMPHOCYTES # (AUTO) 0.9 X 10^3 (1.0-4.0); LYMPHOCYTES % (AUTO) 3 % (12-44); MEAN CORPUSCULAR HEMOGLOBIN 31 PG (25-34); MEAN CORPUSCULAR HGB CONC 35 G/DL (32-36); MEAN CORPUSCULAR VOLUME 88 FL (80-99); MEAN PLATELET VOLUME 10.1 FL (7.4-10.4); MONOCYTES # (AUTO) 1.3 X 10^3 (0.0-1.0); MONOCYTES % (AUTO) 5 % (0-12); NEUTROPHILS # (AUTO) 25.1 X 10^3 (1.8-7.8); NEUTROPHILS % (AUTO) 92 % (42-75); PLATELET COUNT 263 10^3/uL (130-400); RED CELL DISTRIBUTION WIDTH 13.5 % (10.0-14.5); WHITE BLOOD COUNT 27.3 10^3/uL (4.3-11.0)
[2019-08-25 07:42] LABS: ALANINE AMINOTRANSFERASE 22 U/L (0-55); ALBUMIN 3.9 GM/DL (3.2-4.5); ALKALINE PHOSPHATASE 62 U/L (40-136); BILIRUBIN,TOTAL 0.3 MG/DL (0.1-1.0); BUN/CREATININE RATIO 19; CALCIUM 9.2 MG/DL (8.5-10.1); CARBON DIOXIDE 24 MMOL/L (21-32); CHLORIDE 108 MMOL/L (98-107); CREATININE SERUM 0.95 MG/DL (0.60-1.30); GFR ESTIMATED > 60; GLUCOSE 112 MG/DL (70-105); POTASSIUM 4.2 MMOL/L (3.6-5.0); SODIUM 142 MMOL/L (135-145); TOTAL PROTEIN 6.2 GM/DL (6.4-8.2)
[2019-08-25] MEDS: SENNA W/DOCUSATE (SENOKOT S) TABLET PO SCH (08:44)
[2019-08-25] MEDS: BACLOFEN 10 MG (LIORESAL) TAB PO SCH (08:44)
[2019-08-25] MEDS: polyethylene glycoL POWDER 17 GM (MIRALAX) PACK PO SCH (08:44)
[2019-08-25] MEDS: DICLOFENAC 1% GEL 100 GM (VOLTAREN) TUBE TOP SCH (08:44)
[2019-08-25 08:55] VITALS: BP 130/59
[2019-08-25] MEDS ORDERED: METH4TAB10 PO (09:58)
--- NOTE | 2019-08-25 10:11 | Discharge Summary ---
Discharge Summary Hospital Course Was the Problem List Reviewed?: Yes Problems/Dx: (1) Severe low back pain Hospital Course Date of Admission: Aug 23, 2019 at 13:33 Admission Diagnosis : Family Physician/Provider: John Wan DO Date of Discharge: 08/25/19 Discharge Diagnosis: Severe incapacitating back pain failed PO meds requiring urgent surgery Dr Garcia Hospital Course: Hospital course: Pt had an uneventful hospital course after he was directly admitted for severe and incapacitating back pain, MRI obtained, Dr. Garcia consulted, and it showed evidence of nerve impingement, surgical resolution was required, IV steroids, Valium, Dilaudid, were all used to help with the pain overall he stabilized. Labs remained stable, white count at discharge was 27,000 from the IV steroids I was giving him. No fever, otherwise he was very stable. Dr. Garcia will see him in two weeks and he was discharged on Percocet and Baclofen. MiraLax and Senna were given in addition to Milk of Magnesia and I told him to get all of those medications from over the counter in order to maintain and resolve any constipation. Labs and Pending Lab Test: Laboratory Tests 08/25/19 06:50: White Blood Count 27.3H, Red Blood Count 4.86, Hemoglobin 14.8, Hematocrit 43, Mean Corpuscular Volume 88, Mean Corpuscular Hemoglobin 31, Mean Corpuscular He moglobin Concent 35, Red Cell Distribution Width 13.5, Platelet Count 263, Mean Platelet Volume 10.1, Neutrophils (%) (Auto) 92H, Lymphocytes (%) (Auto) 3L, Monocytes (%) (Auto) 5, Eosinophils (%) (Auto) 0, Basophils (%) (Auto) 0, Neutrophils # (Auto) 25.1H, Lymphocytes # (Auto) 0.9L, Monocytes # (Auto) 1.3H, Eosinophils # (Auto) 0.0, Basophils # (Auto) 0.0, Sodium Level 142, Potassium Level 4.2, Chloride Level 108H, Carbon Dioxide Level 24, Anion Gap 10, Blood Urea Nitrogen 18, Creatinine 0.95, Estimat Glomerular Filtration Rate > 60, BUN/Creatinine Ratio 19, Glucose Level 112H, Calcium Level 9.2, Corrected Calci um 9.3, Total Bilirubin 0.3, Aspartate Amino Transf (AST/SGOT) 16, Alanine Aminotransferase (ALT/SGPT) 22, Alkaline Phosphatase 62, Total Protein 6.2L, Albumin 3.9 Microbiology 08/23/19 MRSA Screen - Final, Complete MRSA not isolated Home Meds Active Methylprednisolone Dose Pack (Methylprednisolone) 4 Mg Tab.ds.pk 4 Mg PO UD 6 Days PER DOSE PACK INSTRUCTIONS Reported Laxative (Bisacodyl) 5 Mg Tablet 5 Mg PO DAILY Ibuprofen 200 Mg Tablet 400 Mg PO Q8H PRN Dextroamp-Amphet ER 20 mg Cap (Dextroamphetamine/Amphetamine) 20 Mg Cap.er.24h 20 Mg PO DAILY Percocet 10-325 mg Tablet (Oxycodone HCl/Acetaminophen) 1 Each Tablet 1 Tab PO Q6H PRN Baclofen 10 Mg Tablet 5 Mg PO TID TAKING OF A 10MG TAB Prednisone 10 Mg Tab Mg PO UD THIS IS A TAPER DOSE: 3 TABS TWICE DAILY X5 DAYS-PT JUST STARTED AND WAS STILL ON THISE DOSE 2 TABS TWICE DAILY X 4 DAYS 2 TABS DAILYX 2 DAYS 1 TAB DAILY X 2 DAYS- THEN STOP Assessment/Pt Instructions Dr Wan as scheduled Dr Garcia as scheduled Discharge Planning: <30 minutes discharge planning Discharge Physical Examination Vital Signs Vital Signs Date Time Temp Pulse Resp B/P (MAP) Pulse Ox O2 Delivery O2 Flow Rate FiO2 08/25/19 08:55 36.8 81 19 130/59 (82) 95 Room Air 08/24/19 20:30 3 General Appearance: No Apparent Distress, WD/WN Allergies: Coded Allergies: No Known Drug Allergies (Unverified , 12/15/18) Discharge Summary Date of Admission Aug 23, 2019 at 13:33 Date of Discharge Discharge Date: Aug 25, 2019 Admission Diagnosis Assessment: Severe and incapacitating back pain failed PO meds requiring surgical resolution per Dr Garcia Chronic constipation Plan: Pain meds IV Valium IV steroids Surgery tomorrow Hold Lovenox Appreciate Dr Garcia Discharge Diagnosis Assessment: Severe and incapacitating back pain failed PO meds requiring surgical resolution per Dr Garcia Chronic constipation Plan: Pain meds IV Valium IV steroids Surgery today [address] Garcia (1) Severe low back pain Clinical Quality Measures DVT/VTE Risk/Contraindication: Risk Factor Score Per Nursin RFS Level Per Nursing on Admit: 1=Low/No VTE PPX JOELLEN NGUYEN DO Aug 25, 2019 10:11
[2019-08-25] MEDS ORDERED: MILK OF MAGNESIA 400 MG/5 ML 30 ML UDC PO ONE (10:15)
[2019-08-25 10:37] VITALS: BP 130/59
--- NOTE | 2019-08-25 12:37 | Anesthesia-General Post-Op ---
General Patient Condition Mental Status/LOC: Same as Preop Cardiovascular: Satisfactory Nausea/Vomiting: Absent Respiratory: Satisfactory Pain: Controlled Complications: Absent Post Op Complications Complications None Follow Up Care/Instructions Patient Instructions None needed. Anesthesia/Patient Condition Patient Condition Patient is doing well, no complaints, stable vital signs, no apparent adverse anesthesia problems. No complications reported per nursing. EARLINE FRANK CRNA Aug 25, 2019 12:37
== END 2019-08-25 11:35 | disposition home or self-care (01) | DRG 520 ==
LOC: 4TH 13:33
PROVIDERS: ADMIT Internal Medicine; ATTEND Internal Medicine
PROC: 01NB0ZZ Release Lumbar Nerve, Open Approach (ICD-10-PCS; 2019-08-24)
PROC: 0SB20ZZ Excision of Lumbar Vertebral Disc, Open Approach (ICD-10-PCS; principal; 2019-08-24 18:11)
DX: M51.16 Intervertebral disc disorders with radiculopathy, lumbar region (principal); M48.061 Spinal stenosis, lumbar region without neurogenic claudication; K21.9 Gastro-esophageal reflux disease without esophagitis; K59.09 Other constipation; F90.9 Attention-deficit hyperactivity disorder, unspecified type; X50.0XXA Overexertion from strenuous movement or load, initial encounter; Y92.009 Unspecified place in unspecified non-institutional (private) residence as the place of occurrence of the external cause
CPT/HCPCS: 36415; 72148; 76000; 80053; 81000; 84145; 85007; 85025; 85027; 85652; 86141; 87081